=== PATIENT | male | born 1990 | race Caucasian/White ===

== ENCOUNTER 2017-04-23 15:13 | Emergency (ER) | payer OTHER ==
[~2017-04-23] VITALS: Ht 188 cm; Wt 104.1 kg
[~2017-04-23 15:13] MED LIST: BIOTPOW17; OMEG10007 PO
[2017-04-23 15:24] VITALS: TEMP 36.3; Ht 188 cm; Wt 104.1 kg
--- NOTE | 2017-04-23 15:47 | EMERGENCY ROOM VISIT NOTE ---
ED Visit Note First contact with patient: 15:30 CHIEF COMPLAINT: Finger injury HISTORY OF PRESENT ILLNESS: This 26-year-old male patient presents to the emergency department approximately 2 hours after injuring the right third finger while playing rugby. The patient states "I think I broke my finger or ruptured tendons my finger". The patient states he was going in for a tackle, and holding the [place] of another player, when the player got tackled. He states his finger twisted at that time. The patient states he then got tackled , and he heard a pop in his finger. He reports immediate pain and bruising with associated swelling. The patient rates the pain as sharp and 5/10. The patient has limited range of motion of the finger due to pain. No numbness or tingling. No lacerations. No other injuries. The patient has not had previous fracture to this finger. The patient has taken nothing for the pain. The patient did see the ict trainer immediately after the injury, and was given an ice pack and splint for his finger. The patient attempted to be seen at a local urgent care, however they stated they did not have an x-ray tech working, and were unable to see the patient. REVIEW OF SYSTEMS: A 6 system review of systems was completed with positives and pertinent negatives in the HPI. ALLERGIES: Augmentin, echinacea MEDICATIONS: Ibuprofen intermittently PMH: Von Willebrand's type I SOCIAL HISTORY: The patient lives locally with family. He denies drug, tobacco use. The patient is report alcohol use approximately once or twice a week. PHYSICAL EXAM: Vital Signs: Reviewed Nurse's notes, vital signs stable. GENERAL : This is a healthy, active, 26-year-old male, in no acute distress, but appears to be in pain, well-developed, well-nourished. MUSCULOSKELETAL: There is no deformity of the right third finger, but there is swelling and bruising of the intermediate phalange. The patient has full flexion and and extension of the right middle finger, however strength to resistance is 3/5 due to pain. The DIP joint is maximally tender. There is no ligamentous instability. There is no laceration. Capillary refill less than 2 seconds. No tenderness of the remaining fingers or hand. Full range of motion of the wrist. NEURO: Alert and oriented to person, place, and time. Normal sensation to light and sharp touch. RADIOLOGY: X-Ray Right 3rd Digit: FINDINGS: Alignment of the right third finger is anatomic. No acute fracture is identified. Joint spaces are preserved. IMPRESSION: No acute fracture or dislocation of the right third finger. EMERGENCY DEPARTMENT COURSE: I examined the patient. I did offer pain medication and the patient declines. The patient was given an ice pack. An x- ray of the right 3rd finger was reviewed by myself and read by radiologist and showed no acute fracture or abnormalities. The finger was immobilized by a finger splint under my direction and the position was satisfactory. Neurovascular status rechecked and intact. The patient was discharged home in good condition. DIFFERENTIAL DIAGNOSIS: Contusion, fracture, sprain, strain, tendon injury, and others DIAGNOSIS: right 3rd finger contusion. DISCHARGE INSTRUCTIONS: Ibuprofen(Motrin, Advil) may be used for fever or pain. Use 600mg every six hours as needed. Take with food. Avoid using more than 2400mg in a 24 hour period. Do not use 2400mg per day for more than three consecutive days without physician direction. Prolonged inappropriate use can lead to stomach upset or ulcers. (AND/OR) Acetaminophen(Tylenol) may be used for fever or pain. Use 1000mg every six hours as needed. Avoid using more than 3000mg in a 24 hour period. *You may alternate these medications every 3-4 hours. Ice compresses for 20 minutes at a time four times daily for 2-3 days. Rest and elevate your injury. Do not get the splint wet. If your splint feels excessively tight, you have worsening pain, develop numbness or tingling, or your digits appear blue, loosen the wrap. Then reapply the dixon wrap gently. If your symptoms are not quickly relieved return to the ER for re-evaluation. Wear the splint for the next 2-3 days, then ck tape the finger to a finger next to it for comfort. You may return to your normal activities. Return to the ER immediately for any numbness, tingling, severe pain, extreme swelling in the extremity or as needed. Follow-up with your primary care physician in 2 to 3 days for a recheck of your current condition. Current/Historical Medications Scheduled [Amino Acid Powder], 1 DOSE PO PRN UD Scheduled PRN Ibuprofen (Advil), 400 MG PO Q6 PRN for Pain Allergies Coded Allergies: Amoxicillin (Unverified Allergy, Unknown, NAUSEA, 03/26/16) Clavulanic Acid (Unverified Allergy, Unknown, NAUSEA, 03/26/16) Echinacea (Unverified Allergy, Unknown, UNKNOWN, 03/26/16) Vital Signs Date Time Temp Pulse Resp B/P (MAP) Pulse Ox O2 Delivery O2 Flow Rate FiO2 04/23/17 15:24 36.3 99 16 140/90 98 Room Air Departure Information Impression Primary Impression: Contusion of right middle finger without damage to nail, initial encounter Dispostion Home / Self-Care Condition GOOD Referrals No Doctor, Assigned (PCP) Patient Instructions ED Contusion Finger, My [facility] Additional Instructions ORTHOPEDIC INSTRUCTIONS Ibuprofen(Motrin, Advil) may be used for fever or pain. Use 600mg every six hours as needed. Take with food. Avoid using more than 2400mg in a 24 hour period. Do not use 2400mg per day for more than three consecutive days without physician direction. Prolonged inappropriate use can lead to stomach upset or ulcers. (AND/OR) Acetaminophen(Tylenol) may be used for fever or pain. Use 1000mg every six hours as needed. Avoid using more than 3000mg in a 24 hour period. *You may alternate these medications every 3-4 hours. Ice compresses for 20 minutes at a time four times daily for 2-3 days. Rest and elevate your injury. Do not get the splint wet. If your splint feels excessively tight, you have worsening pain, develop numbness or tingling, or your digits appear blue, loosen the wrap. Then reapply the dixon wrap gently. If your symptoms are not quickly relieved return to the ER for re-evaluation. Wear the splint for the next 2-3 days, then ck tape the finger to a finger next to it for comfort. You may return to your normal activities. Return to the ER immediately for any numbness, tingling, severe pain, extreme swelling in the extremity or as needed. Follow-up with your primary care physician in 2 to 3 days for a recheck of your current condition.
[2017-04-23] MEDS ORDERED: AMINO ACID PO (16:12)
[2017-04-23] MEDS ORDERED: IBUP-1050 PO (16:12)
--- NOTE | 2017-04-23 16:38 | DIAGNOSTIC IMAGING REPORT ---
RIGHT FINGER(S) MIN 2 VIEWS ROUTINE CLINICAL HISTORY: Right third finger pain and bruising following trauma. COMPARISON: None FINDINGS: Alignment of the right third finger is anatomic. No acute fracture is identified. Joint spaces are preserved. IMPRESSION: No acute fracture or dislocation of the right third finger. Electronically signed by: Ric Gao M.D. 04/23/2017 4:36 PM Dictated Date/Time: 04/23/2017 4:35 PM
[2017-04-23 17:08] VITALS: BP 121/84; PULSE 71; O2SAT 98
== END 2017-04-23 17:09 | disposition home or self-care (01) ==
LOC: C.EDB 15:14 → C.EDD 17:09
DX: S60.031A Contusion of right middle finger without damage to nail, initial encounter (principal); X58.XXXA Exposure to other specified factors, initial encounter; Y93.63 Activity, rugby; D68.0 Von Willebrand disease; Z88.8 Allergy status to other drugs, medicaments and biological substances